=== PATIENT | male | born 1945 | race Caucasian/White ===

== ENCOUNTER 2023-06-11 12:14 | Emergency (ER) | payer MEDICARE, BC ==
[2023-06-11] MEDS ORDERED: Bacitracin/Neomycin/Polymyxin B Oint 0.9 GM U/D Packet TOP ONE (13:17)
== END 2023-06-11 14:00 | disposition home or self-care (01) ==
LOC: KA.ED 12:14
DX: S61.001A Unspecified open wound of right thumb without damage to nail, initial encounter (principal); E78.00 Pure hypercholesterolemia, unspecified; I10 Essential (primary) hypertension; Z79.899 Other long term (current) drug therapy; Z91.048 Other nonmedicinal substance allergy status; W26.9XXA Contact with unspecified sharp object(s), initial encounter
CPT/HCPCS: 73140-F5; 99283